=== PATIENT | female | born 1990 | race African-American/Black ===

== ENCOUNTER 2022-09-30 12:43 | Emergency (ER) | payer BC ==
[~2022-09-30] VITALS: Ht 165.1 cm; Wt 95.0 kg
[~2022-09-30 12:43] MED LIST: NO MEDS
[2022-09-30 14:52] VITALS: BP 102/59
[2022-09-30] MEDS ORDERED: NAPROXEN500 MG PO (16:04)
== END 2022-09-30 17:05 | disposition home or self-care (01) | DRG 605 ==
LOC: ED 12:43
DX: S80.01XA Contusion of right knee, initial encounter (principal); W18.30XA Fall on same level, unspecified, initial encounter